=== PATIENT | female | born 1985 | race Caucasian/White ===

== ENCOUNTER 2017-12-04 23:46 | Emergency (ER) | payer OTHER ==
[~2017-12-04] VITALS: Ht 162.6 cm; Wt 130.0 kg
[2017-12-04 23:50] VITALS: BP 169/92
== END 2017-12-05 03:03 | disposition home or self-care (01) ==
LOC: ED 23:59
DX: G89.11 Acute pain due to trauma (principal); M25.531 Pain in right wrist; X58.XXXA Exposure to other specified factors, initial encounter; Y93.89 Activity, other specified; Y92.89 Other specified places as the place of occurrence of the external cause; Y99.8 Other external cause status
CPT/HCPCS: 99284

== ENCOUNTER → 2018-08-13 | Outpatient (CLI) | payer OTHER ==
[~2018-08-13] MED LIST: LISI-170 PO; METF500T17 PO
[2018-08-13 08:48] LABS: BASOPHILS # (AUTO) 0.08 x10^3/uL (0-0.1); BASOPHILS % (AUTO) 1 % (0-1); EOSINOPHILS # (AUTO) 0.06 x10^3/uL (0-0.4); EOSINOPHILS % (AUTO) 1 % (1-7); LYMPHOCYTES # (AUTO) 2.16 x10^3/uL (1-3.4); LYMPHOCYTES % (AUTO) 30 % (22-44); MD NO; MEAN CORPUSCULAR HGB CONC 32.3 g/dL (32.4-35.8); MEAN CORPUSCULAR VOLUME 83.6 fL (80-100); MONOCYTES % (AUTO) 8 % (2-9); NEUTROPHILS # (AUTO) 4.41 x10^3/uL (1.8-6.8); NEUTROPHILS % (AUTO) 60 % (42-75); PLATELET COUNT 387 x10^3/uL (130-400); RED BLOOD COUNT 4.76 x10^6/uL (3.82-5.3)
[2018-08-13 08:59] LABS: ALBUMIN 3.7 g/dL (3.4-5.0); ANION GAP 7 mmol/L (5-15); CHLORIDE 106 mmol/L (98-107)
[2018-08-13 09:05] LABS: ALANINE AMINOTRANSFERASE 47 U/L (12-78); ALKALINE PHOSPHATASE 54 U/L (45-117); BILIRUBIN,TOTAL 0.6 mg/dL (0.2-1.0); TOTAL PROTEIN 7.7 g/dL (6.4-8.2)
== END | disposition home or self-care (01) ==
LOC: STAR 08:00
PROVIDERS: ATTEND Obstetrics & Gynecology
DX: Z01.818 Encounter for other preprocedural examination (principal); N92.0 Excessive and frequent menstruation with regular cycle
CPT/HCPCS: 36415; 80053; 84703; 85025

== ENCOUNTER 2018-08-19 10:19 | Inpatient (IN) | payer OTHER ==
[~2018-08-19] VITALS: Ht 162.6 cm; Wt 115.5 kg
[2018-08-19 10:45] VITALS: BP 130/86
[2018-08-19] MEDS ORDERED: LACTATED RINGERS 1,000 ML IV SCH (10:48)
[2018-08-19] MEDS ORDERED: GABAPENTIN 300 MG CAPSULE PO ONE (11:00)
[2018-08-19] MEDS ORDERED: SCOPOLAMINE PATCH, 1.5MG PATCH.TD72 TD ONE (11:00)
[2018-08-19] MEDS ORDERED: ACETAMINOPHEN 500 MG TABLET PO ONE (11:00)
[2018-08-19 11:16] LABS: HCG UR SG 1.025 (1.003-1.030)
[2018-08-19] MEDS ORDERED: MIDAZOLAM 1 MG/ML, 2ML ONE (12:03)
[2018-08-19] MEDS ORDERED: FENTANYL PF 250 MCG/5ML ONE (12:04)
[2018-08-19] MEDS ORDERED: FLUORESCEIN SODIUM 500 MG/5 ML ONE (12:18)
[2018-08-19] MEDS ORDERED: EPINEPHRINE 1 MG/ML, 1ML ONE (12:18)
[2018-08-19] MEDS ORDERED: BUPIVACAINE/PF 0.25% ONE (12:18)
[2018-08-19] MEDS ORDERED: PROMETHAZINE 25 MG SUPP PR PRN (12:30)
[2018-08-19] MEDS ORDERED: PROMETHAZINE 25 MG/ML, 1ML IV PRN (12:30)
[2018-08-19] MEDS ORDERED: LABETALOL 5MG/ML, 20ML IV PRN (12:30)
[2018-08-19] MEDS ORDERED: ONDANSETRON 2MG/ML, 2ML IV PRN (12:30)
[2018-08-19] MEDS ORDERED: OXYcodone 5 MG/5 ML ORAL.SOL UDC PO PRN (12:30)
[2018-08-19] MEDS ORDERED: MORPHINE SULFATE 4 MG/ML, 1ML IVPush PRN (12:30)
[2018-08-19] MEDS ORDERED: PROMETHAZINE 12.5 MG SUPP PR PRN (12:30)
[2018-08-19] MEDS ORDERED: HYDROmorphone 2 MG/ML, 1ML IVPush PRN (12:30)
[2018-08-19] MEDS ORDERED: hydrALAzine 20 MG/ML, 1ML IV PRN (12:30)
[2018-08-19] MEDS ORDERED: HALOPERIDOL 5 MG/ML IV PRN (12:30)
[2018-08-19] MEDS ORDERED: PROMETHAZINE 25 MG/ML, 1ML IM PRN ×2 (12:30)
[2018-08-19] MEDS ORDERED: MEPERIDINE/PF 25MG/0.5ML IVPush PRN (12:30)
[2018-08-19] MEDS ORDERED: ONDANSETRON ODT 8 MG PO PRN (12:30)
[2018-08-19] MEDS ORDERED: ONDANSETRON 2MG/ML, 2ML ONE (14:06)
[2018-08-19] MEDS ORDERED: PROPOFOL 10 MG/ML, 20ML ONE (14:06)
[2018-08-19] MEDS ORDERED: CEFAZOLIN 1,000 MG ONE (14:06)
[2018-08-19] MEDS ORDERED: ROCURONIUM 10MG/ML,5ML ONE (14:06)
[2018-08-19] MEDS ORDERED: DEXAMETHASONE 4 MG/ML, 1ML ONE (14:06)
[2018-08-19] MEDS ORDERED: FENTANYL PF 100 MCG/2ML ONE ×2 (14:06→15:20)
[2018-08-19] MEDS ORDERED: GLYCOPYRROLATE 0.2MG/1ML, 5ML ONE (14:06)
[2018-08-19] MEDS ORDERED: NEOSTIGMINE 1 MG/ML, 10ML ONE (14:06)
[2018-08-19] MEDS ORDERED: OXYcodone 5 MG/5 ML ORAL.SOL UDC ONE ×2 (15:20→19:46)
[2018-08-19] MEDS: FENTANYL PF 100 MCG/2ML IV PRN ×2 (15:23→16:25)
[2018-08-19] MEDS ORDERED: metFORMIN 500 MG TABLET PO SCH (16:30)
[2018-08-19] MEDS ORDERED: ACETAMINOPHEN 650 MG SUPP PR PRN (17:30)
[2018-08-19] MEDS ORDERED: ACETAMINOPHEN 325 MG TABLET PO PRN (17:30)
[2018-08-19] MEDS ORDERED: BISACODYL 10 MG SUPP PR PRN (17:30)
[2018-08-19] MEDS ORDERED: D5%-LACTATED RINGERS 1,000 ML IV SCH (18:00)
[2018-08-19] MEDS ORDERED: LISINOPRIL 20 MG TABLET PO SCH (18:00)
[2018-08-19 19:01] LABS: MEAN CORPUSCULAR HEMOGLOBIN 27.8 pg (27.0-34.8); MEAN CORPUSCULAR HGB CONC 32.4 g/dL (32.4-35.8); MEAN CORPUSCULAR VOLUME 85.8 fL (80-100); MEAN PLATELET VOLUME 8.4 fL (7.4-10.4); PLATELET COUNT 412 x10^3/uL (130-400); RED BLOOD COUNT 4.56 x10^6/uL (3.82-5.3); RED CELL DISTRIBUTION WIDTH 15.2 % (9.6-15.2)
[2018-08-19 19:13] LABS: BASOPHILS # (AUTO) 0.01 x10^3/uL (0-0.1); BASOPHILS % (AUTO) 0 % (0-1); EOSINOPHILS % (AUTO) 0 % (1-7); LYMPHOCYTES # (AUTO) 1.11 x10^3/uL (1-3.4); LYMPHOCYTES % (AUTO) 9 % (22-44); MD SCAN; MONOCYTES # (AUTO) 0.05 x10^3/uL (0.2-0.8); MONOCYTES % (AUTO) 0 % (2-9); NEUTROPHILS # (AUTO) 11.57 x10^3/uL (1.8-6.8); NEUTROPHILS % (AUTO) 91 % (42-75)
[2018-08-19] MEDS: morphine SULFATE 10 MG/ML, 1ML IV PRN ×3 (20:24→22:21)
[2018-08-19] MEDS ORDERED: SIMETHICONE 80 MG CHEW TAB PO SCH (21:00)
[2018-08-19] MEDS ORDERED: IBUPROFEN 600 MG TABLET PO SCH (21:00)
[2018-08-19] MEDS ORDERED: SENNA/DOCUSATE TABLET PO SCH (21:00)
[2018-08-19] MEDS ORDERED: DOCUSATE 100 MG CAPSULE PO SCH (21:00)
[2018-08-19] MEDS ORDERED: ZOLPIDEM 5MG TABLET PO PRN (21:00)
== END 2018-08-19 22:25 | disposition home or self-care (01) | DRG 742 ==
LOC: ORIP 10:19 → 4NOR 16:42
PROVIDERS: ADMIT Obstetrics & Gynecology; ATTEND Obstetrics & Gynecology
PROC: 0UT7FZZ Resection of Bilateral Fallopian Tubes, Via Natural or Artificial Opening With Percutaneous Endoscopic Assistance (ICD-10-PCS; 2018-08-19)
PROC: 0TJB8ZZ Inspection of Bladder, Via Natural or Artificial Opening Endoscopic (ICD-10-PCS; 2018-08-19)
PROC: 0UT9FZZ Resection of Uterus, Via Natural or Artificial Opening With Percutaneous Endoscopic Assistance (ICD-10-PCS; principal; 2018-08-19 12:30)
DX: N85.4 Malposition of uterus (principal); Z68.41 Body mass index [BMI] 40.0-44.9, adult; N92.0 Excessive and frequent menstruation with regular cycle; E66.01 Morbid (severe) obesity due to excess calories; Z98.891 History of uterine scar from previous surgery; I10 Essential (primary) hypertension; E11.9 Type 2 diabetes mellitus without complications
CPT/HCPCS: 36415; 81025; 82962; 85025; 86850; 86900; 88307; G0378; J0171; J0690; J1100; J2250; J2405; J2704; J2710; J3010; J3490; J2270; J7120

== ENCOUNTER 2018-08-21 09:47 | Emergency (ER) | payer OTHER ==
[~2018-08-21] VITALS: Ht 162.6 cm; Wt 117.0 kg
[2018-08-21] MEDS ORDERED: IBUP-1222 PO (10:38)
[2018-08-21] MEDS ORDERED: DOCU100C33 PO (10:38)
[2018-08-21] MEDS ORDERED: OXYC-302 PO (10:38)
--- NOTE | 2018-08-21 10:41 | NUR ---
DR. BHATIA AT BEDSIDE. PT C/O ABD PAIN S/P HYSTERECTOMY 2 DAYS AGO WITH CONSTIPATION AND NAUSEA. PT DENIES URINARY PROBLEMS. PT TO HAVE CT.
[2018-08-21 10:54] LABS: MEAN CORPUSCULAR HEMOGLOBIN 27.1 pg (27.0-34.8); MEAN CORPUSCULAR HGB CONC 32.1 g/dL (32.4-35.8); MEAN CORPUSCULAR VOLUME 84.2 fL (80-100); MEAN PLATELET VOLUME 7.7 fL (7.4-10.4); PLATELET COUNT 415 x10^3/uL (130-400); RED BLOOD COUNT 4.38 x10^6/uL (3.82-5.3)
[2018-08-21] MEDS ORDERED: SODIUM CHLORIDE FLUSH 10ML SYR IVF ONE (11:00)
[2018-08-21 11:01] LABS: MICROSCOPIC NOT IND
[2018-08-21 11:05] LABS: ALBUMIN 3.6 g/dL (3.4-5.0); ANION GAP 4 mmol/L (5-15); CALCIUM 8.7 mg/dL (8.5-10.1); CHLORIDE 108 mmol/L (98-107); CREATININE 0.85 mg/dL (0.55-1.02)
[2018-08-21 11:07] LABS: CULTURE INDICATED? NO
[2018-08-21 11:14] LABS: MD SCAN
[2018-08-21 11:15] LABS: BASOPHILS # (AUTO) 0.08 x10^3/uL (0-0.1); BASOPHILS % (AUTO) 1 % (0-1); EOSINOPHILS # (AUTO) 0.08 x10^3/uL (0-0.4); EOSINOPHILS % (AUTO) 1 % (1-7); LYMPHOCYTES # (AUTO) 3.76 x10^3/uL (1-3.4); LYMPHOCYTES % (AUTO) 44 % (22-44); MONOCYTES # (AUTO) 0.62 x10^3/uL (0.2-0.8); MONOCYTES % (AUTO) 7 % (2-9); NEUTROPHILS # (AUTO) 3.99 x10^3/uL (1.8-6.8); NEUTROPHILS % (AUTO) 47 % (42-75)
[2018-08-21] MEDS ORDERED: MORPHINE SULFATE 4 MG/ML, 1ML ONE (11:20)
[2018-08-21] MEDS ORDERED: ONDANSETRON 2MG/ML, 2ML ONE (11:20)
--- NOTE | 2018-08-21 11:35 | NUR ---
PT MEDICATED FOR PAIN. WAITING FOR CT TO BE DONE.
[2018-08-21] MEDS ORDERED: ONDANSETRON 2MG/ML, 2ML IVPush ONE (12:00)
[2018-08-21] MEDS ORDERED: MORPHINE SULFATE 4 MG/ML, 1ML IVPush ONE (12:00)
--- NOTE | 2018-08-21 12:16 | NUR ---
PT TO CT.
[2018-08-21] MEDS ORDERED: OMNIPAQUE 350 MG/ML, 100ML BOTTLE ONE (12:34)
--- NOTE | 2018-08-21 12:50 | NUR ---
CHART UP FOR MD RECHECK. PT AWARE.
[2018-08-21 13:05] VITALS: BP 153/94
== END 2018-08-21 13:31 | disposition home or self-care (01) ==
LOC: ED 11:26
DX: K56.0 Paralytic ileus (principal); R10.84 Generalized abdominal pain; I10 Essential (primary) hypertension; E11.9 Type 2 diabetes mellitus without complications
CPT/HCPCS: 36415; 74177; 80048; 81003; 82040; 85025; 96374; 96375; 99284; J2270; J2405; Q9967

== ENCOUNTER 2018-09-20 19:34 | Emergency (ER) | payer OTHER ==
[~2018-09-20] VITALS: Ht 162.6 cm; Wt 113.5 kg
[2018-09-20 21:56] VITALS: BP 124/67
== END 2018-09-20 21:57 | disposition home or self-care (01) ==
LOC: ED 20:38
DX: S39.011A Strain of muscle, fascia and tendon of abdomen, initial encounter (principal); R10.12 Left upper quadrant pain; R10.32 Left lower quadrant pain; R11.0 Nausea; I10 Essential (primary) hypertension; E11.9 Type 2 diabetes mellitus without complications; Z90.711 Acquired absence of uterus with remaining cervical stump; X58.XXXA Exposure to other specified factors, initial encounter; Y93.89 Activity, other specified; Y92.89 Other specified places as the place of occurrence of the external cause; Y99.8 Other external cause status
CPT/HCPCS: 36415; 80053; 81003; 81025; 83690; 85025; 99283